=== PATIENT | female | born 1955 | race Caucasian/White ===

== ENCOUNTER → 2019-02-10 | Outpatient (CLI) | payer MEDICARE, BC | LOC: RAD 08:30 | DX: M19.031 Primary osteoarthritis, right wrist (principal); M81.0 Age-related osteoporosis without current pathological fracture; M25.831 Other specified joint disorders, right wrist; M25.511 Pain in right shoulder ==

== ENCOUNTER 2019-03-26 11:00 | Outpatient (RCR) | payer MEDICARE, BC | END 2019-03-26 11:30 | disposition home or self-care (01) | LOC: PT 11:00 | DX: M25.511 Pain in right shoulder (principal) ==

== ENCOUNTER → 2020-09-27 | Outpatient (CLI) | payer MEDICARE, BC | LOC: PT 09:45 | DX: M25.561 Pain in right knee (principal) ==

== ENCOUNTER 2020-10-09 10:00 | Outpatient (RCR) | payer MEDICARE, BC | END 2021-01-07 | disposition home or self-care (01) | LOC: PT | DX: Z96.651 Presence of right artificial knee joint (principal) ==

== ENCOUNTER 2022-06-24 08:00 | Outpatient (RCR) | payer MEDICARE, BC | END 2022-06-25 | LOC: PT | DX: M25.561 Pain in right knee (principal); M70.61 Trochanteric bursitis, right hip; Z96.651 Presence of right artificial knee joint ==

== ENCOUNTER 2023-04-07 12:49 | Outpatient (RCR) | payer MEDICARE, BC | END 2023-04-24 | disposition home or self-care (01) | LOC: OT | DX: M19.041 Primary osteoarthritis, right hand (principal); Z96.651 Presence of right artificial knee joint ==

== ENCOUNTER 2023-04-29 08:00 | Outpatient (RCR) | payer MEDICARE, BC | END 2023-05-23 15:31 | disposition home or self-care (01) | LOC: OT 08:00 | DX: M19.041 Primary osteoarthritis, right hand (principal) ==

== ENCOUNTER 2024-02-14 16:44 | Emergency (ER) | payer MEDICARE, BC ==
[~2024-02-14] VITALS: Ht 167.6 cm; Wt 89.1 kg
[2024-02-14] MEDS ORDERED: FAMOTIDINE 1010 MG PO (16:55)
[2024-02-14] MEDS ORDERED: ATORVASTATIN CA20 MG PO (16:56)
[2024-02-14] MEDS ORDERED: PREDNISONE 5MG5 MG PO (16:56)
[2024-02-14] MEDS ORDERED: HYDROXYZINE HCL25 M1 PO (16:56)
[2024-02-14] MEDS ORDERED: LEVOTHYROXINE112 MCG PO (16:56)
[2024-02-14] MEDS ORDERED: PLAQUENIL 200M200 MG PO (16:56)
[2024-02-14] MEDS ORDERED: FAMOTIDINE20 MG PO (16:57)
[2024-02-14] MEDS ORDERED: METOPROLOL SUCC25 M1 PO (16:57)
[2024-02-14] MEDS ORDERED: ZYRTEC ALLERGY10 MG PO (16:58)
[2024-02-14] MEDS ORDERED: SINGULAIR 110 MG/TAB PO (16:58)
[2024-02-14 17:09] LABS: BASO # 0.01 K/mm3 (0.02-0.10); HEMATOCRIT 37.1 % (37.0-47.0); HEMOGLOBIN 12.8 g/dL (12.5-16.0); MEAN CELL VOLUME 89 fl (78-100); MEAN CORPUSCULAR HEMOGLOBIN 31 pg (27-31); MEAN CORPUSCULAR HGB CONC 35 g/dL (33-37); MEAN PLATELET VOLUME 9.5 fl (7.4-10.4); MONO # 0.25 K/mm3 (0.20-0.80); NEU # 5.78 K/mm3 (1.40-6.50); PLATELET COUNT 241 K/mm3 (130-400); RED BLOOD COUNT 4.15 M/mm3 (4.10-5.30); WHITE BLOOD COUNT 7.2 K/mm3 (4.8-10.8)
[2024-02-14 17:17] LABS: ALBUMIN 4.6 g/dL (3.4-4.8)
[2024-02-14 17:18] LABS: CALCIUM 9.8 mg/dL (8.3-10.5)
[2024-02-14 17:19] LABS: TOTAL PROTEIN 7.3 g/dL (6.2-8.1)
[2024-02-14 17:21] LABS: TOTAL BILIRUBIN 0.3 mg/dL (0.2-1.2)
[2024-02-14 17:28] LABS: D-DIMER 0.31 mg/L FEU (0.15-0.50)
[2024-02-14] MEDS ORDERED: PROTONIX20 M1 PO (20:39)
[2024-02-14 20:56] VITALS: BP 128/82
== END 2024-02-14 20:58 | disposition home or self-care (01) ==
LOC: ED 16:44
PROVIDERS: Family Medicine
DX: B36.9 Superficial mycosis, unspecified (principal); K22.4 Dyskinesia of esophagus